=== PATIENT | female | born 1930 | race Caucasian/White ===

== ENCOUNTER 2018-05-18 16:29 | Inpatient (IN) | payer OTHER ==
[~2018-05-18] VITALS: Ht 157.5 cm; Wt 79.4 kg
[2018-05-18] MEDS ORDERED: LIPITOR20 MG (16:46)
[2018-05-18] MEDS ORDERED: LASIX20 MG (16:46)
[2018-05-18] MEDS ORDERED: ZOLOFT25 MG (16:46)
== END 2018-05-19 12:56 | disposition designated cancer center or children's hospital (05) | DRG 309 ==
LOC: ER 16:29 → ICU-2 23:21
PROC: 4A033R1 Measurement of Arterial Saturation, Peripheral, Percutaneous Approach (ICD-10-PCS; principal; 2018-05-18)
PROC: B246ZZZ Ultrasonography of Right and Left Heart (ICD-10-PCS; 2018-05-19)
DX: I44.2 Atrioventricular block, complete (principal); N39.0 Urinary tract infection, site not specified; R00.1 Bradycardia, unspecified; Y92.098 Other place in other non-institutional residence as the place of occurrence of the external cause; K52.89 Other specified noninfective gastroenteritis and colitis; E86.0 Dehydration; I48.0 Paroxysmal atrial fibrillation; K29.00 Acute gastritis without bleeding; E78.00 Pure hypercholesterolemia, unspecified; D69.59 Other secondary thrombocytopenia; E87.6 Hypokalemia; T46.0X5A Adverse effect of cardiac-stimulant glycosides and drugs of similar action, initial encounter; I25.10 Atherosclerotic heart disease of native coronary artery without angina pectoris; Z95.1 Presence of aortocoronary bypass graft; Z74.01 Bed confinement status; B96.89 Other specified bacterial agents as the cause of diseases classified elsewhere; I34.0 Nonrheumatic mitral (valve) insufficiency; I27.29 Other secondary pulmonary hypertension